=== PATIENT | female | born 1990 | race Two or more races ===

== ENCOUNTER 2017-02-05 03:24 | Emergency (ER) | payer SELFPAY ==
[~2017-02-05] VITALS: Ht 160 cm; Wt 93.8 kg
[2017-02-05 04:35] VITALS: BP 146/88
== END 2017-02-05 04:38 | disposition home or self-care (01) ==
LOC: ED 04:26
DX: J20.9 Acute bronchitis, unspecified (principal); J00 Acute nasopharyngitis [common cold]; J45.909 Unspecified asthma, uncomplicated
CPT/HCPCS: 71020

== ENCOUNTER 2019-02-23 23:24 | Emergency (ER) | payer OTHER ==
[~2019-02-23] VITALS: Ht 154.9 cm; Wt 97.3 kg
[2019-02-23] MEDS ORDERED: ACETAMINOPHEN 500 MG TABLET ONE (23:44)
--- NOTE | 2019-02-23 23:46 | NUR ---
pt medicated for fever in triage.
[2019-02-24] MEDS ORDERED: SODIUM CHLORIDE FLUSH 10ML SYR IVF ONE
[2019-02-24] MEDS ORDERED: SODIUM CHLORIDE 0.9% 1,000ML IVBOLUS ONE
[2019-02-24] MEDS ORDERED: IBUPROFEN 800 MG TABLET PO STA
[2019-02-24] MEDS ORDERED: ACETAMINOPHEN 500 MG TABLET PO ONE
--- NOTE | 2019-02-24 00:02 | NUR ---
PT AMBULATED STEADILY TO ROOM. PT REPORTS SOB/CP WITH COUGH X TWO DAYS. DENIES PRODUCTIVE COUGH. HX OF ASTHMA, WO IMPROVEMENT WITH HOME MEDS. PT SPEAKING IN FULL SENTENCES; MILD INCREASE IN WOB. RA SPO2 >90%. PT TACHY, FEBRILE IN TRAIGE. MEDICATED WITH TYLENOL BY FEDERAL MEDIATOR. ERP AWARE. BP/SPO2/ECG MONITORING IN PLACE. SINUS TACH ON MONITOR.
[2019-02-24] MEDS ORDERED: IBUPROFEN 800 MG TABLET ONE (00:06)
[2019-02-24 00:25] LABS: RAPID INFLUENZA A Negative (Negative); RAPID INFLUENZA B Negative (Negative)
--- NOTE | 2019-02-24 00:25 | NUR ---
IV ESTABLISHED, LABS DRAWN. PT MEDICATED PER EMAR. PT PLACED ON 2L BY NC FOR INCREASED WOB, SPO2 REMAINS >90%. RR 22. PT REMAINS PWD. PT DENIES LE EDEMA/PAIN, LONG DISTANCE TRAVEL OR TAKING ORAL CONTROL. WORSENING SOB WITH LAYING FLAT. PT TO RAD AT THIS TIME.
[2019-02-24 00:48] LABS: ALANINE AMINOTRANSFERASE 126 U/L (12-78); ALBUMIN 3.9 g/dL (3.4-5.0); ANION GAP 6 mmol/L (5-15); CALCIUM 8.7 mg/dL (8.5-10.1); CHLORIDE 109 mmol/L (98-107); CREATININE 0.74 mg/dL (0.55-1.02)
[2019-02-24 00:51] LABS: ALKALINE PHOSPHATASE 102 U/L (45-117); BILIRUBIN,TOTAL 0.2 mg/dL (0.2-1.0); TOTAL PROTEIN 8.4 g/dL (6.4-8.2)
[2019-02-24 01:09] VITALS: BP 168/80
--- NOTE | 2019-02-24 01:09 | NUR ---
PT REPORTS 'FEELING A LITTLE BETTER'. PT LAYING BACK IN [facility] WO BREATHING DIFFICULTY. NO CHANGE IN TEMP. IMPROVEMENT IN HR NOTED.
[2019-02-24] MEDS ORDERED: DEXAMETHASONE 4 MG TABLET PO STA (01:18)
[2019-02-24] MEDS ORDERED: DEXAMETHASONE 4 MG TABLET ONE (01:33)
--- NOTE | 2019-02-24 01:35 | NUR ---
PT MEDICATED PER EMAR. PT UPDATED TO POC (LABS/RECHECK)AND DEMONSTRATES UNDERSTANDING.
[2019-02-24 01:45] LABS: BASOPHILS # (AUTO) 0.03 x10^3/uL (0-0.1); BASOPHILS % (AUTO) 0 % (0-1); EOSINOPHILS # (AUTO) 0.24 x10^3/uL (0-0.4); EOSINOPHILS % (AUTO) 3 % (1-7); LYMPHOCYTES # (AUTO) 0.78 x10^3/uL (1-3.4); LYMPHOCYTES % (AUTO) 9 % (22-44); MD NO; MEAN CORPUSCULAR HEMOGLOBIN 28.2 pg (27.0-34.8); MEAN CORPUSCULAR HGB CONC 34.1 g/dL (32.4-35.8); MEAN CORPUSCULAR VOLUME 82.8 fL (80-100); MEAN PLATELET VOLUME 9.3 fL (7.4-10.4); MONOCYTES # (AUTO) 0.55 x10^3/uL (0.2-0.8); MONOCYTES % (AUTO) 6 % (2-9); NEUTROPHILS # (AUTO) 7.01 x10^3/uL (1.8-6.8); NEUTROPHILS % (AUTO) 82 % (42-75); PLATELET COUNT 259 x10^3/uL (130-400); RED BLOOD COUNT 4.82 x10^6/uL (3.82-5.3); RED CELL DISTRIBUTION WIDTH 13.5 % (9.6-15.2)
--- NOTE | 2019-02-24 02:16 | NUR ---
POC IS DC. PT REPORTS FEELING BETTER THAN SHE DID UPON ARRIVAL. SPO2 >90% ON RA. RR WNL. PT REMAINS FEBRILE, EDUCATED REGARDING USE OF TYLENOL AND MOTRIN FOR FEVER CONTROL. PT OFF MONITORING AND ASKED TO DRESS.
--- NOTE | 2019-02-24 02:29 | NUR ---
DC EDUCATION PROVIDED, PT DEMONSTRATES UNDERSTANDING. PT AMBULATED STEADILY TO DC WITH RN AND FRIEND.
== END 2019-02-24 02:31 | disposition home or self-care (01) ==
LOC: ED 02-24 02:25
DX: J02.8 Acute pharyngitis due to other specified organisms (principal); R50.9 Fever, unspecified; J45.909 Unspecified asthma, uncomplicated
CPT/HCPCS: 36415; 71046; 80053; 85025; 86308; 87400; 93005; 99284; J7030

== ENCOUNTER 2019-12-16 22:44 | Emergency (ER) | payer SELFPAY ==
[~2019-12-16] VITALS: Ht 154.9 cm; Wt 95.4 kg
[2019-12-16] MEDS ORDERED: ALBUTEROL/IPRATROPIUM 2.5MG/0.5MG, 3 ML NPPB PRN (23:00)
[2019-12-16] MEDS ORDERED: ALBUTEROL/IPRATROPIUM 2.5MG/0.5MG, 3 ML NPPB ONE (23:00)
[2019-12-16] MEDS ORDERED: ACETAMINOPHEN 500 MG TABLET PO ONE (23:00)
--- NOTE | 2019-12-16 23:05 | NUR ---
PT C/O COUGH AND SOB LASTING 4 DAYS, PT ALSO REPORTS LEFT LEG AND LEFT FOREARM BURNING SENSATION IF TOUCHED. PT REPORTS TAKING MOTRIN AND THERAFLU AT HOME. PT DENIES OTHER C/O A THIS TIME. ERMD IN ROOM TO EVAL PT. PT UPDATED ON POC. MONITORING APPLIED, CALL LIGHT WITHIN REACH, ALL SAFETY MEASURES IN PLACE. FRIEND AT BS FOR SUPPORT.
[2019-12-16] MEDS ORDERED: ACETAMINOPHEN 500 MG TABLET ONE (23:11)
[2019-12-16 23:26] LABS: RAPID INFLUENZA A POSITIVE (Negative); RAPID INFLUENZA B Negative (Negative)
[2019-12-16] MEDS ORDERED: ALBUTEROL/IPRATROPIUM 2.5MG/0.5MG, 3 ML ONE (23:26)
--- NOTE | 2019-12-16 23:52 | NUR ---
PT RESTING ON GURNEY WITH EYES CLOSED. PT UPDATED ON POC. MONITORING IN PLACE, CALL LIGHT WITHIN REACH.
[2019-12-17 00:25] VITALS: BP 125/92
== END 2019-12-17 00:33 | disposition home or self-care (01) ==
LOC: ED 12-17 00:22
DX: J45.41 Moderate persistent asthma with (acute) exacerbation (principal); J10.1 Influenza due to other identified influenza virus with other respiratory manifestations; J40 Bronchitis, not specified as acute or chronic
CPT/HCPCS: 71046; 87400; 94640; 99284; J7512; J7620